=== PATIENT | male | born 1940 | race Caucasian/White ===

== ENCOUNTER 2016-07-30 09:58 | Inpatient (IN) | payer MEDICARE ==
[~2016-07-30 09:58] MED LIST: FENOFIBRATE160 MG PO; GLIPIZIDE5 MG PO; HCTZ25 MG PO; NORVASC 10MG TA10 MG PO; PLAVIX75 MG PO; PRAVACHOL80 MG PO; PRINIVIL20 MG PO; PROTONIX 40MG T40 MG PO
[2016-07-30 11:38] LABS: BASOPHIL 0.3 % (0-2); BILIRUBIN NEGATIVE (NEGATIVE); BLOOD NEGATIVE Ery/uL (NEGATIVE); CLARITY CLEAR (CLEAR); COLOR YELLOW (YELLOW); EOSINOPHIL 1.5 % (0-7); GLUCOSE (U) 2+ mg/dL (NORMAL); HCT 41.3 % (42.0-52.0); HGB 14.4 g/dl (13.2-18.0); KETONE (U) NEGATIVE (NEGATIVE); LEUKOCYTES NEGATIVE Leu/uL (NEGATIVE); LYMPHOCYTE 15.7 % (15-48); MCHC 34.9 g/dL (32.0-36.0); MCV 83.1 fL (78.0-100.0); MONOCYTE 9.8 % (0-12); MPV 10.6 fL (6.0-9.5); NEUTROPHIL 72.7 % (41-80); NITRITE NEGATIVE (NEGATIVE); PLT 247 K/uL (150-400); PROTEIN 1+ mg/dL (NEGATIVE); RBC 4.97 M/uL (4.70-6.00); RDW 12.1 % (11.5-14.0); UROBILINOGEN 0.2 mg/dL (0.2-1.0); WBC 7.8 K/uL (4.0-10.5)
[2016-07-30 11:41] LABS: SQUAMOUS EPITHELIAL CELLS RARE; URINARY RBC RARE; URINARY WBC RARE
[2016-07-30 11:51] LABS: INR 1.01 (0.9-1.2); PROTHROMBIN TIME 12.9 SECONDS (11.7-14.0); PTT 26.1 SECONDS (23.2-31.4)
[2016-07-30 12:00] LABS: ALBUMIN 4.7 g/dL (3.4-4.8); BILIRUBIN - TOTAL 0.4 mg/dL (0.1-1.0); CREATININE 2.3 mg/dL (0.7-1.2); GLOBULIN (CALCULATION) 2.5 g/dL (2.2-4.2); TOTAL PROTEIN 7.2 g/dL (6.4-8.3)
[2016-07-30 12:03] LABS: CKMB 3.59 ng/mL (0.97-4.94); TROPONIN T 0.034 ng/mL
[2016-07-31 04:53] LABS: HCT 38.5 % (42.0-52.0); HGB 13.2 g/dl (13.2-18.0); MCH 28.9 pg (25.0-31.0); MCHC 34.3 g/dL (32.0-36.0); MCV 84.2 fL (78.0-100.0); MPV 10.3 fL (6.0-9.5); RBC 4.57 M/uL (4.70-6.00); RDW 12.1 % (11.5-14.0); WBC 6.4 K/uL (4.0-10.5)
[2016-07-31 05:10] LABS: CREATININE 1.9 mg/dL (0.7-1.2); POTASSIUM 3.7 mmol/L (3.5-5.1)
[2016-08-01 08:06] LABS: HCT 37.1 % (42.0-52.0); HGB 12.4 g/dl (13.2-18.0); MCH 28.6 pg (25.0-31.0); MCHC 33.4 g/dL (32.0-36.0); MCV 85.5 fL (78.0-100.0); MPV 9.8 fL (6.0-9.5); RBC 4.34 M/uL (4.70-6.00); RDW 12.2 % (11.5-14.0); WBC 5.8 K/uL (4.0-10.5)
[2016-08-01 08:26] LABS: CREATININE 1.3 mg/dL (0.7-1.2)
[2016-08-02 06:40] LABS: HCT 36.3 % (42.0-52.0); HGB 12.3 g/dl (13.2-18.0); MCHC 33.9 g/dL (32.0-36.0); MCV 85.6 fL (78.0-100.0); MPV 10.1 fL (6.0-9.5); RBC 4.24 M/uL (4.70-6.00); RDW 12.4 % (11.5-14.0); WBC 5.8 K/uL (4.0-10.5)
[2016-08-02 07:02] LABS: CREATININE 1.2 mg/dL (0.7-1.2); POTASSIUM 4.5 mmol/L (3.5-5.1)
== END 2016-08-02 19:30 | disposition home or self-care (01) | DRG 638 ==
LOC: FER 09:58 → FMS 13:40
PROVIDERS: Emergency Medicine; ADMIT Internal Medicine
DX: E11.65 Type 2 diabetes mellitus with hyperglycemia (principal); N17.9 Acute kidney failure, unspecified; F03.90 Unspecified dementia, unspecified severity, without behavioral disturbance, psychotic disturbance, mood disturbance, and anxiety; J44.9 Chronic obstructive pulmonary disease, unspecified; T50.2X5A Adverse effect of carbonic-anhydrase inhibitors, benzothiadiazides and other diuretics, initial encounter; T36.95XA Adverse effect of unspecified systemic antibiotic, initial encounter; I10 Essential (primary) hypertension; I25.10 Atherosclerotic heart disease of native coronary artery without angina pectoris; E78.5 Hyperlipidemia, unspecified; I73.9 Peripheral vascular disease, unspecified; F17.210 Nicotine dependence, cigarettes, uncomplicated; G89.29 Other chronic pain; E87.6 Hypokalemia; Z66 Do not resuscitate; Z95.1 Presence of aortocoronary bypass graft; K21.9 Gastro-esophageal reflux disease without esophagitis; Y92.009 Unspecified place in unspecified non-institutional (private) residence as the place of occurrence of the external cause; Z79.899 Other long term (current) drug therapy
CPT/HCPCS: 36415; 36600; 71010; 80048; 80053; 81001; 82550; 82553; 82803; 82962; 83880; 84484; 85025; 85610; 85730; 93005; 97110; 97116; 97162; 97530-GP; J1644; J1815

== ENCOUNTER 2016-08-27 09:40 | Emergency (ER) | payer MEDICARE ==
[2016-08-27 09:49] LABS: BASOPHIL 0.4 % (0-2); EOSINOPHIL 2.6 % (0-7); HCT 39.1 % (42.0-52.0); HGB 13.1 g/dl (13.2-18.0); LYMPHOCYTE 22.5 % (15-48); MCHC 33.5 g/dL (32.0-36.0); MCV 83.5 fL (78.0-100.0); MONOCYTE 9.7 % (0-12); MPV 9.4 fL (6.0-9.5); NEUTROPHIL 64.8 % (41-80); PLT 332 K/uL (150-400); RBC 4.68 M/uL (4.70-6.00); RDW 12.5 % (11.5-14.0); WBC 10.3 K/uL (4.0-10.5)
[2016-08-27 09:58] LABS: INR 1.01 (0.9-1.2); PROTHROMBIN TIME 12.9 SECONDS (11.7-14.0)
[2016-08-27 10:06] LABS: TROPONIN T 0.032 ng/mL
[2016-08-27 10:15] LABS: BILIRUBIN NEGATIVE (NEGATIVE); BLOOD NEGATIVE Ery/uL (NEGATIVE); CLARITY CLEAR (CLEAR); COLOR YELLOW (YELLOW); GLUCOSE (U) NORMAL (NORMAL); KETONE (U) NEGATIVE (NEGATIVE); LEUKOCYTES NEGATIVE Leu/uL (NEGATIVE); NITRITE NEGATIVE (NEGATIVE); PROTEIN 2+ mg/dL (NEGATIVE); UROBILINOGEN 0.2 mg/dL (0.2-1.0)
[2016-08-27 10:19] LABS: SQUAMOUS EPITHELIAL CELLS RARE
[2016-08-27 11:04] LABS: ALBUMIN 3.9 g/dL (3.4-4.8); BILIRUBIN - TOTAL 0.2 mg/dL (0.1-1.0); CREATININE 1.7 mg/dL (0.7-1.2); GLOBULIN (CALCULATION) 2.7 g/dL (2.2-4.2); POTASSIUM 3.6 mmol/L (3.5-5.1); TOTAL PROTEIN 6.6 g/dL (6.4-8.3)
== END 2016-08-27 13:47 | disposition home or self-care (01) ==
LOC: FER 09:40
PROVIDERS: Emergency Medicine
DX: E86.0 Dehydration (principal); N28.9 Disorder of kidney and ureter, unspecified; E11.9 Type 2 diabetes mellitus without complications; F17.210 Nicotine dependence, cigarettes, uncomplicated; Z95.1 Presence of aortocoronary bypass graft; Z79.899 Other long term (current) drug therapy; Z79.84 Long term (current) use of oral hypoglycemic drugs
CPT/HCPCS: 36415; 71020; 80053; 81001; 82140; 83605; 83880; 84484; 85025; 85610; 87804; 87899; 93005

== ENCOUNTER 2020-10-05 15:32 | Inpatient (IN) | payer OTHER ==
[2020-10-05 16:40] LABS: BASOPHIL 0.4 % (0-2); EOSINOPHIL 0.1 % (0-7); HCT 39.6 % (42.0-52.0); HGB 13.7 g/dl (13.2-18.0); MCHC 34.6 g/dL (32.0-36.0); MCV 86.7 fL (78.0-100.0); MONOCYTE 6.7 % (0-12); MPV 10.3 fL (6.0-9.5); NRBC 0; PLT 279 K/uL (150-400); RBC 4.57 M/uL (4.70-6.00); RDW 12.5 % (11.5-14.0); WBC 13.5 K/uL (4.0-10.5)
[2020-10-05 17:06] LABS: ALBUMIN 4.1 g/dL (3.4-5.0); BILIRUBIN - TOTAL 0.4 mg/dL (0.2-1.0); CREATININE 2.5 mg/dL (0.67-1.17); POTASSIUM 5.2 mmol/L (3.5-5.1); TOTAL PROTEIN 8.1 g/dL (6.4-8.2)
[2020-10-05 18:12] LABS: CORONAVIRUS 2019 SARS-COV-2 NEGATIVE (NEGATIVE); INFLUENZA A NAA NEGATIVE (NEGATIVE)
[2020-10-05 18:35] LABS: BILIRUBIN NEGATIVE (NEGATIVE); BLOOD NEGATIVE Ery/uL (NEGATIVE); CLARITY CLEAR (CLEAR); COLOR YELLOW (YELLOW); GLUCOSE (U) NORMAL (NORMAL); LEUKOCYTES NEGATIVE Leu/uL (NEGATIVE); NITRITE NEGATIVE (NEGATIVE); PROTEIN 2+ mg/dL (NEGATIVE); UROBILINOGEN 0.2 mg/dL (0.2-1.0); pH 5.5 (5.0-9.0)
[2020-10-05 18:47] LABS: SQUAMOUS EPITHELIAL CELLS RARE; URINARY RBC RARE; URINARY WBC RARE
[2020-10-05 19:17] LABS: CREATININE 2.16 mg/dL (0.67-1.17); POTASSIUM 5.5 mmol/L (3.5-5.1)
[2020-10-05 22:58] LABS: CREATININE 2.16 mg/dL (0.67-1.17); POTASSIUM 5.2 mmol/L (3.5-5.1)
[2020-10-06] MEDS ORDERED: ATENOLOL25 MG PO (00:38)
[2020-10-06] MEDS ORDERED: BUMEX1 MG PO (00:39)
[2020-10-06] MEDS ORDERED: BUMETANIDE1 MG PO (00:40)
[2020-10-06] MEDS ORDERED: ALLERGY RELIEF10 MG PO (00:41)
[2020-10-06] MEDS ORDERED: PLAVIX75 MG PO (00:42)
[2020-10-06] MEDS ORDERED: ARICEPT 5MG TABL5 MG PO (00:42)
[2020-10-06] MEDS ORDERED: HYDRALAZINE25 MG PO (00:43)
[2020-10-06] MEDS ORDERED: FEROSUL325 MG PO (00:43)
[2020-10-06] MEDS ORDERED: ISOSORBIDE MONO30 MG PO (00:45)
[2020-10-06] MEDS ORDERED: VITAMIN D350 MC3 PO (00:47)
[2020-10-06] MEDS ORDERED: MIRALAX17 GM PO (00:48)
[2020-10-06] MEDS ORDERED: PROTONIX 40MG T40 MG PO (00:49)
[2020-10-06] MEDS ORDERED: NOVOLOG VI100 UNIT/1 SC (00:49)
[2020-10-06] MEDS ORDERED: PRAVACHOL20 MG PO (00:50)
[2020-10-06] MEDS ORDERED: ALDACTONE50 MG PO (00:50)
[2020-10-06] MEDS ORDERED: ACETAMINOPHEN500 M1 PO (00:51)
[2020-10-06] MEDS ORDERED: AMITIZA8 MCG PO (00:52)
[2020-10-06 06:16] LABS: URINE TOTAL PROTEIN-RANDOM 35.1 mg/dL (<11.9)
[2020-10-06 06:34] LABS: BASOPHIL 0.6 % (0-2); EOSINOPHIL 0.5 % (0-7); HCT 37.3 % (42.0-52.0); HGB 12.5 g/dl (13.2-18.0); LYMPHOCYTE 13.2 % (15-48); MCH 29.7 pg (25.0-31.0); MCHC 33.5 g/dL (32.0-36.0); MCV 88.6 fL (78.0-100.0); MONOCYTE 8.8 % (0-12); MPV 10.2 fL (6.0-9.5); NEUTROPHIL 76.2 % (41-80); NRBC 0; PLT 228 K/uL (150-400); RBC 4.21 M/uL (4.70-6.00); RDW 12.4 % (11.5-14.0); WBC 8.7 K/uL (4.0-10.5)
[2020-10-06 06:52] LABS: ALBUMIN 3.5 g/dL (3.4-5.0); BILIRUBIN - TOTAL 0.4 mg/dL (0.2-1.0); CREATININE 1.88 mg/dL (0.67-1.17); GLOBULIN (CALCULATION) 3.4 g/dL; POTASSIUM 5.1 mmol/L (3.5-5.1); TOTAL PROTEIN 6.9 g/dL (6.4-8.2)
[2020-10-07 09:12] LABS: BASOPHIL 0.6 % (0-2); EOSINOPHIL 1.6 % (0-7); HCT 34.2 % (42.0-52.0); HGB 11.4 g/dl (13.2-18.0); LYMPHOCYTE 12.7 % (15-48); MCHC 33.3 g/dL (32.0-36.0); MONOCYTE 8.3 % (0-12); NRBC 0; PLT 195 K/uL (150-400); RDW 12.7 % (11.5-14.0); WBC 8.1 K/uL (4.0-10.5)
[2020-10-07 09:43] LABS: CREATININE 1.24 mg/dL (0.67-1.17); POTASSIUM 4.6 mmol/L (3.5-5.1)
[2020-10-07 15:02] LABS: HCT 35.4 % (42.0-52.0); HGB 11.7 g/dl (13.2-18.0); MCH 29.7 pg (25.0-31.0); MCHC 33.1 g/dL (32.0-36.0); MCV 89.8 fL (78.0-100.0); MPV 9.9 fL (6.0-9.5); RBC 3.94 M/uL (4.70-6.00); RDW 12.8 % (11.5-14.0); WBC 8.9 K/uL (4.0-10.5)
[2020-10-07 15:12] LABS: INR 1.06 (0.9-1.2); PROTHROMBIN TIME 13.1 SECONDS (11.4-13.6); PTT 30.5 SECONDS (22.2-34.7)
[2020-10-08 07:11] LABS: BASOPHIL 0.6 % (0-2); EOSINOPHIL 2.6 % (0-7); HCT 35.2 % (42.0-52.0); HGB 11.7 g/dl (13.2-18.0); LYMPHOCYTE 13.2 % (15-48); MCH 29.8 pg (25.0-31.0); MCHC 33.2 g/dL (32.0-36.0); MCV 89.6 fL (78.0-100.0); MONOCYTE 8.6 % (0-12); MPV 10.1 fL (6.0-9.5); NEUTROPHIL 73.1 % (41-80); NRBC 0; PLT 203 K/uL (150-400); RBC 3.93 M/uL (4.70-6.00); RDW 12.8 % (11.5-14.0); WBC 8.8 K/uL (4.0-10.5)
[2020-10-08 07:15] LABS: BUN/CREAT RATIO (CALC) 34.4 RATIO; CREATININE 1.31 mg/dL (0.67-1.17); MAGNESIUM 1.8 mg/dL (1.8-2.4); POTASSIUM 5.1 mmol/L (3.5-5.1)
[2020-10-08 14:07] LABS: ORGANISM ID Not indicated. (.); SPECIMEN SOURCE Urine (.); STREPTOCOCCUS PNEUMONIAE AG Negative (Negative)
--- NOTE | 2020-10-08 14:54 | NUR ---
10/08/20 Mr. Francis's son, guardian Pedro Pablo Francis ) reports that Mr. Francis lives at home with his spouse. family members are in and out of the house throughout the day. One daughter is a RN and also visits the home. - Mr. Francis has a rw and cane. Pedro Pablo Francis does not wish to have services. He said his sister can provide nursing services and Therapy would not be benficial. - A report was given to Dr. Harper.
[2020-10-08 16:08] LABS: ALBUMIN 3.2 g/dL (2.9-4.4); ALPHA-1-GLOBULIN 0.2 g/dL (0.0-0.4); ALPHA-2-GLOBULIN 1.1 g/dL (0.4-1.0); GAMMA GLOBULIN 0.9 g/dL (0.4-1.8); GLOBULIN, TOTAL 3.2 g/dL (2.2-3.9); M-SPIKE Not Observed g/dL (Not Observed); PROTEIN, TOTAL, SERUM 6.4 g/dL (6.0-8.5)
[2020-10-09 06:37] LABS: HCT 38.4 % (42.0-52.0); HGB 12.6 g/dl (13.2-18.0); MCH 29.6 pg (25.0-31.0); MCHC 32.8 g/dL (32.0-36.0); MCV 90.1 fL (78.0-100.0); MPV 10.1 fL (6.0-9.5); RBC 4.26 M/uL (4.70-6.00); WBC 13.4 K/uL (4.0-10.5)
[2020-10-09 07:00] LABS: BUN/CREAT RATIO (CALC) 30.2 RATIO; CREATININE 1.16 mg/dL (0.67-1.17); POTASSIUM 5.2 mmol/L (3.5-5.1)
[2020-10-09 10:07] LABS: URINE CREATININE 65.63 mg/dL (29.00-226.00); URINE TOTAL PROTEIN-RANDOM 135.4 mg/dL (<11.9)
--- NOTE | 2020-10-09 10:42 | NUR ---
10/09/20 Mr. Francis is being discharged today. Pedro Pablo Francis, guardian, was contacted by telephone. The physician's and therapist's recommendations for HH for nursing and therapy were reiterated. Mr. Pedro Pablo Francis declined HH services. - A report was given to Dr. Harper.
--- NOTE | 2020-10-09 11:04 | NUR ---
DISCHARGE ORDERS RECEIVED. IV DC'D. ORDERS FOR HOME HEALTH. PATIENTS FAMILY DECLINED. PT SON TO [employer] HEL[employer]. DISCHARGE PAPERS GIVEN TO PT. ALL QUESTIONS ANSWERED.
[2020-10-10 16:11] LABS: A/G RATIO 1.1 (0.7-1.7); ALBUMIN 3.1 g/dL (2.9-4.4); ALPHA-1-GLOBULIN 0.3 g/dL (0.0-0.4); ALPHA-2-GLOBULIN 1.1 g/dL (0.4-1.0); BETA GLOBULIN 0.9 g/dL (0.7-1.3); GAMMA GLOBULIN 0.8 g/dL (0.4-1.8); GLOBULIN, TOTAL 3.1 g/dL (2.2-3.9); IMMUNOFIXATION RESULT, SERUM Comment: (.); IMMUNOGLOBULIN A, QN, SERUM 163 mg/dL (61-437); IMMUNOGLOBULIN G, QN, SERUM 745 mg/dL (603-1613); IMMUNOGLOBULIN M, QN, SERUM 46 mg/dL (15-143); M-SPIKE Not Observed g/dL (Not Observed); PROTEIN, TOTAL, SERUM 6.2 g/dL (6.0-8.5)
== END 2020-10-09 13:30 | disposition home health service (06) | DRG 684 ==
LOC: FER 15:32 → FTCU 19:52
PROVIDERS: Emergency Medicine; Hospitalist; Internal Medicine Nephrology; Nurse Practitioner; ADMIT Internal Medicine
DX: N17.9 Acute kidney failure, unspecified (principal); I12.9 Hypertensive chronic kidney disease with stage 1 through stage 4 chronic kidney disease, or unspecified chronic kidney disease; N18.30 Chronic kidney disease, stage 3 unspecified; R80.9 Proteinuria, unspecified; F03.90 Unspecified dementia, unspecified severity, without behavioral disturbance, psychotic disturbance, mood disturbance, and anxiety; E86.0 Dehydration; R11.2 Nausea with vomiting, unspecified; E87.5 Hyperkalemia; E86.1 Hypovolemia; Z79.899 Other long term (current) drug therapy; K59.00 Constipation, unspecified; E11.22 Type 2 diabetes mellitus with diabetic chronic kidney disease; I73.9 Peripheral vascular disease, unspecified; I25.10 Atherosclerotic heart disease of native coronary artery without angina pectoris; Z95.1 Presence of aortocoronary bypass graft; E78.5 Hyperlipidemia, unspecified; K21.9 Gastro-esophageal reflux disease without esophagitis; G89.29 Other chronic pain; M54.9 Dorsalgia, unspecified; Z20.822 Contact with and (suspected) exposure to COVID-19; L22 Diaper dermatitis; R26.81 Unsteadiness on feet
CPT/HCPCS: 36415; 71045; 76770; 80048; 80053; 81001; 82043; 82570; 82784; 82962; 83605; 83735; 84155; 84156; 84165; 85025; 85610; 85730; 86335; 94760; 97162; 97166; 97530-GP; 97535; C9113; J1650; J2405; J7030; U0002

== ENCOUNTER 2020-11-04 02:04 | Inpatient (IN) | payer OTHER ==
[~2020-11-04] VITALS: Ht 175.3 cm; Wt 81.2 kg
[~2020-11-04 02:04] MED LIST changes: +ACETAMINOPHEN500 M1 PO; +ALDACTONE50 MG PO; +ALLERGY RELIEF10 MG PO; +AMITIZA8 MCG PO; +ARICEPT 5MG TABL5 MG PO; +ATENOLOL25 MG PO; +BUMETANIDE1 MG PO; +BUMEX1 MG PO; +FEROSUL325 MG PO; +HYDRALAZINE25 MG PO; +ISOSORBIDE MONO30 MG PO; +MIRALAX17 GM PO; +NOVOLOG VI100 UNIT/1 SC; +PRAVACHOL20 MG PO; +VITAMIN D350 MC3 PO
[2020-11-04 05:52] LABS: ALBUMIN 3.1 g/dL (3.4-5.0); BILIRUBIN - TOTAL 0.5 mg/dL (0.2-1.0); BUN/CREAT RATIO (CALC) 14.5 RATIO; CREATININE 1.1 mg/dL (0.67-1.17); GLOBULIN (CALCULATION) 3.6 g/dL; POTASSIUM 4.2 mmol/L (3.5-5.1); TOTAL PROTEIN 6.7 g/dL (6.4-8.2)
[2020-11-04 06:04] LABS: BASOPHIL 0.5 % (0-2); EOSINOPHIL 0.9 % (0-7); HCT 36.2 % (42.0-52.0); HGB 11.6 g/dl (13.2-18.0); LYMPHOCYTE 9.7 % (15-48); MCH 29.4 pg (25.0-31.0); MCV 91.6 fL (78.0-100.0); MONOCYTE 9.7 % (0-12); MPV 10.7 fL (6.0-9.5); NEUTROPHIL 78.5 % (41-80); NRBC 0; PLT 354 K/uL (150-400); RBC 3.95 M/uL (4.70-6.00); RDW 14.6 % (11.5-14.0)
[2020-11-04 07:46] LABS: LACTIC ACID 1.2 mmol/L (0.4-1.9)
[2020-11-04 11:16] LABS: BILIRUBIN NEGATIVE (NEGATIVE); BLOOD NEGATIVE Ery/uL (NEGATIVE); CLARITY CLEAR (CLEAR); COLOR YELLOW (YELLOW); GLUCOSE (U) NORMAL (NORMAL); LEUKOCYTES NEGATIVE Leu/uL (NEGATIVE); NITRITE NEGATIVE (NEGATIVE); PROTEIN 3+ mg/dL (NEGATIVE); SPECIFIC GRAVITY 1.025 (1.001-1.030); UROBILINOGEN 0.2 mg/dL (0.2-1.0)
[2020-11-04 11:29] LABS: BACTERIA 1+; URINARY RBC RARE; URINARY WBC RARE
[2020-11-04 11:58] LABS: MAGNESIUM 1.7 mg/dL (1.8-2.4)
[2020-11-05 06:07] LABS: BASOPHIL 0.4 % (0-2); EOSINOPHIL 4.8 % (0-7); HCT 31.1 % (42.0-52.0); HGB 10.4 g/dl (13.2-18.0); LYMPHOCYTE 18.5 % (15-48); MCH 29.7 pg (25.0-31.0); MCHC 33.4 g/dL (32.0-36.0); MCV 88.9 fL (78.0-100.0); MONOCYTE 11.4 % (0-12); MPV 9.9 fL (6.0-9.5); NEUTROPHIL 64.4 % (41-80); NRBC 0; PLT 251 K/uL (150-400); RDW 14.4 % (11.5-14.0); WBC 7.3 K/uL (4.0-10.5)
[2020-11-05 06:22] LABS: BUN/CREAT RATIO (CALC) 16.1 RATIO; CREATININE 1.24 mg/dL (0.67-1.17); PHOSPHORUS 3.4 mg/dL (2.6-4.7); POTASSIUM 3.7 mmol/L (3.5-5.1)
--- NOTE | 2020-11-05 12:06 | NUR ---
SPOKE WITH SON, TORREY MICHAEL WHO IS PT. GUARDIAN [phone]. HE IS DECLINING THE HH AND PT. HE STATED THAT HE DOES NOT WISH TO HAVE HH HIS SISTER IS A NURSE AND WILL BE CHECKING ON THEIR FATHER. ADVISED HIM THAT THE DOCTOR IS RECOMMENDING HH AND PT, BUT HE CONTINUED TO DECLINE THE SERVICES.
[2020-11-06 09:35] LABS: HCT 33.1 % (42.0-52.0); HGB 10.3 g/dl (13.2-18.0); MCH 29.3 pg (25.0-31.0); MCHC 31.1 g/dL (32.0-36.0); MPV 9.7 fL (6.0-9.5); RBC 3.52 M/uL (4.70-6.00); RDW 14.3 % (11.5-14.0); WBC 7.7 K/uL (4.0-10.5)
[2020-11-06 10:02] LABS: CREATININE 1.19 mg/dL (0.67-1.17); POTASSIUM 4.4 mmol/L (3.5-5.1)
[2020-11-06] MEDS ORDERED: K-DUR20 MEQ PO (10:38)
[2020-11-06] MEDS ORDERED: BUMEX1 MG PO (10:38)
[2020-11-06] MEDS ORDERED: ZITHROMAX250 MG PO (11:00)
[2020-11-06] MEDS ORDERED: CEFDINIR300 MG PO (11:00)
== END 2020-11-06 13:40 | disposition home or self-care (01) | DRG 280 ==
LOC: FER 02:04 → FMS 08:18
PROVIDERS: Emergency Medicine; Internal Medicine; ADMIT Allergy & Immunology Allergy
DX: I21.A1 Myocardial infarction type 2 (principal); J18.9 Pneumonia, unspecified organism; E78.5 Hyperlipidemia, unspecified; I12.9 Hypertensive chronic kidney disease with stage 1 through stage 4 chronic kidney disease, or unspecified chronic kidney disease; N18.30 Chronic kidney disease, stage 3 unspecified; F17.210 Nicotine dependence, cigarettes, uncomplicated; E11.22 Type 2 diabetes mellitus with diabetic chronic kidney disease; Z20.822 Contact with and (suspected) exposure to COVID-19; R60.0 Localized edema; E87.70 Fluid overload, unspecified; G89.29 Other chronic pain; E11.51 Type 2 diabetes mellitus with diabetic peripheral angiopathy without gangrene; Z95.1 Presence of aortocoronary bypass graft; Z95.0 Presence of cardiac pacemaker; Z95.5 Presence of coronary angioplasty implant and graft; Z98.890 Other specified postprocedural states; Z79.02 Long term (current) use of antithrombotics/antiplatelets; Z79.899 Other long term (current) drug therapy; Z79.4 Long term (current) use of insulin
CPT/HCPCS: 36415; 71045; 80048; 80053; 80061; 81001; 82962; 83605; 83735; 83880; 84100; 84484; 85025; 87040; 93005; J0696; J1650; J2405; J2543; J3475; U0002

== ENCOUNTER 2021-07-26 20:16 | Inpatient (IN) | payer OTHER ==
[~2021-07-26] VITALS: Ht 175.3 cm; Wt 81.7 kg
[~2021-07-26 20:16] MED LIST changes: +CEFDINIR300 MG PO; +K-DUR20 MEQ PO; +ZITHROMAX250 MG PO
[2021-07-26 21:13] LABS: BASOPHIL 0.5 % (0-2); EOSINOPHIL 3.7 % (0-7); HCT 35.1 % (42.0-52.0); HGB 11.6 g/dl (13.2-18.0); LYMPHOCYTE 19.9 % (15-48); MCH 29.4 pg (25.0-31.0); MCV 88.9 fL (78.0-100.0); MPV 9.8 fL (6.0-9.5); NEUTROPHIL 63.9 % (41-80); NRBC 0; PLT 166 K/uL (150-400); RBC 3.95 M/uL (4.70-6.00); RDW 14.3 % (11.5-14.0); WBC 5.9 K/uL (4.0-10.5)
[2021-07-26 21:39] LABS: ALBUMIN 3.3 g/dL (3.4-5.0); BILIRUBIN - TOTAL 0.1 mg/dL (0.2-1.0); BUN/CREAT RATIO (CALC) 16.8 RATIO; CREATININE 2.5 mg/dL (0.67-1.17); FT4 (FREE T4) 0.7 ng/dL (0.76-1.46); GLOBULIN (CALCULATION) 3.6 g/dL; MAGNESIUM 1.2 mg/dL (1.8-2.4); PHOSPHORUS 4.5 mg/dL (2.6-4.7); TOTAL PROTEIN 6.9 g/dL (6.4-8.2)
[2021-07-26 21:56] LABS: POTASSIUM 6.7 mmol/L (3.5-5.1)
[2021-07-26 22:54] LABS: LACTIC ACID 1.4 mmol/L (0.4-1.9)
[2021-07-27] MEDS ORDERED: SPIRONOLACTONE25 M1 PO (02:13)
[2021-07-27 07:16] LABS: BASOPHIL 0.6 % (0-2); EOSINOPHIL 3.1 % (0-7); HCT 38.8 % (42.0-52.0); HGB 12.3 g/dl (13.2-18.0); LYMPHOCYTE 17.7 % (15-48); MCH 28.7 pg (25.0-31.0); MCHC 31.7 g/dL (32.0-36.0); MCV 90.7 fL (78.0-100.0); MONOCYTE 10.7 % (0-12); MPV 9.9 fL (6.0-9.5); NEUTROPHIL 67.3 % (41-80); NRBC 0; PLT 180 K/uL (150-400); RBC 4.28 M/uL (4.70-6.00); RDW 14.5 % (11.5-14.0); WBC 7.1 K/uL (4.0-10.5)
[2021-07-27 07:37] LABS: ALBUMIN 3.4 g/dL (3.4-5.0); BILIRUBIN - TOTAL 0.2 mg/dL (0.2-1.0); BUN/CREAT RATIO (CALC) 18.6 RATIO; CREATININE 2.15 mg/dL (0.67-1.17); GLOBULIN (CALCULATION) 3.9 g/dL; MAGNESIUM 1.5 mg/dL (1.8-2.4); PHOSPHORUS 3.8 mg/dL (2.6-4.7); POTASSIUM 6.3 mmol/L (3.5-5.1); TOTAL PROTEIN 7.3 g/dL (6.4-8.2)
--- NOTE | 2021-07-27 11:40 | NUR ---
1115 PT WALKED TO [facility] WITH ASSISTANCE AND URINATED THEN STARTED HAVING EXTREME PAIN TO THE RLQ THAT RADIATED TO THE R BACK NOTIFIED DR ALICIA, HE ORDERED XRAY, KUB, DILAUDID 0.5MG ONE TIME NOW AND THEN DILAUDID 0.5 MG Q4HRS PRN AND 1MG FOR EXTREME PAIN. ALSO ORDERED MEDICATIONS FOR BOWELS
[2021-07-27 13:35] LABS: BUN/CREAT RATIO (CALC) 17.4 RATIO; CREATININE 2.07 mg/dL (0.67-1.17); POTASSIUM 6.2 mmol/L (3.5-5.1)
[2021-07-27 20:17] LABS: CREATININE 2.1 mg/dL (0.67-1.17); POTASSIUM 5.1 mmol/L (3.5-5.1)
--- NOTE | 2021-07-28 05:36 | NUR ---
WALKED PT TO THE TOILET, HE IS STILL HAVING EXTREME RLQ PAIN THAT RADIATES TO THIS BACK. NOTIFIED BRIANA THAT THE PAIN WAS STILL PRESENT.
--- NOTE | 2021-07-28 18:32 | NUR ---
PT C/O RIGHT LOWER BACK/HIP PAIN, DILAUDID 2MG TAB WAS GIVEN FOR PT PAIN, PAIN WAS RATED A 10/10. AFTER REASSESSMENT, PAIN WAS STILL NOT RELIEVED AND A 10/10. MD WAS NOTIFED AND VERBAL ORDER TO GIVE ANOTHER 2MG TAB DILAUDID TO EQUAL ORDER OF 4MG TAB DILAUDID. EMAR WAS ATTEMPTED TO BE CORRECTED.
[2021-07-29 06:13] LABS: BUN/CREAT RATIO (CALC) 18.4 RATIO; CREATININE 1.79 mg/dL (0.67-1.17); MAGNESIUM 1.1 mg/dL (1.8-2.4); POTASSIUM 4.3 mmol/L (3.5-5.1)
[2021-07-29] MEDS ORDERED: BUMEX1 MG PO (14:05)
[2021-07-29] MEDS ORDERED: TOPROL XL 25MG25 MG PO (14:20)
[2021-07-29] MEDS ORDERED: DILAUDID2 MG PO ×2 (14:22→14:39)
--- NOTE | 2021-07-29 15:37 | NUR ---
07/29/21 Mr. Francis lives at home with his spouse. He has a rw, edna, 3in1 and s. chair. He has 3 children. Guardianship has changed from Pedro Pablo Francis, son, to his daughter, Janet Venegas, . Ms. Venegas is a nurse. - Pt recommended HH. Awaiting response from guardian re: HH selection.
== END 2021-07-29 15:53 | disposition home health service (06) | DRG 683 ==
LOC: FER 20:16 → FICU 07-27 00:35 → FTCU 07-28 07:33
PROVIDERS: Allergy & Immunology Allergy; Emergency Medicine Emergency Medical Services; Internal Medicine Nephrology; Nurse Practitioner; ADMIT Internal Medicine
PROC: 05HY33Z Insertion of Infusion Device into Upper Vein, Percutaneous Approach (ICD-10-PCS; principal; 2021-07-27)
DX: N17.9 Acute kidney failure, unspecified (principal); I13.0 Hypertensive heart and chronic kidney disease with heart failure and stage 1 through stage 4 chronic kidney disease, or unspecified chronic kidney disease; E87.5 Hyperkalemia; Z20.822 Contact with and (suspected) exposure to COVID-19; E11.22 Type 2 diabetes mellitus with diabetic chronic kidney disease; N18.32 Chronic kidney disease, stage 3b; F03.90 Unspecified dementia, unspecified severity, without behavioral disturbance, psychotic disturbance, mood disturbance, and anxiety; I45.10 Unspecified right bundle-branch block; E83.42 Hypomagnesemia; Z66 Do not resuscitate; I25.10 Atherosclerotic heart disease of native coronary artery without angina pectoris; K40.90 Unilateral inguinal hernia, without obstruction or gangrene, not specified as recurrent; M54.50 Low back pain, unspecified; E78.5 Hyperlipidemia, unspecified; G89.29 Other chronic pain; R10.31 Right lower quadrant pain; Z95.1 Presence of aortocoronary bypass graft; Z95.0 Presence of cardiac pacemaker; Z95.828 Presence of other vascular implants and grafts; Z98.890 Other specified postprocedural states
CPT/HCPCS: 36415; 71045; 74018; 80048; 80053; 82962; 83036; 83605; 83735; 84100; 84132; 84145; 84439; 84443; 84484; 85025; 93005; 94010; 94640; 94664; 94762; 97162; 97166; 97530-GP; 97535; C1751; J0610; J1170; J1644; J1815; J1940; J2405; J3475; J7030; U0002

== ENCOUNTER 2021-11-28 16:01 | Emergency (ER) | payer OTHER ==
[~2021-11-28 16:01] MED LIST changes: +DILAUDID2 MG PO; +SPIRONOLACTONE25 M1 PO; +TOPROL XL 25MG25 MG PO
[2021-11-28 18:20] LABS: BASOPHIL 0.6 % (0-2); EOSINOPHIL 0.2 % (0-7); HCT 36.3 % (42.0-52.0); HGB 11.6 g/dl (13.2-18.0); LYMPHOCYTE 7.5 % (15-48); MCH 28.8 pg (25.0-31.0); MCV 90.1 fL (78.0-100.0); MONOCYTE 6.8 % (0-12); MPV 9.9 fL (6.0-9.5); NEUTROPHIL 84.2 % (41-80); NRBC 0; PLT 362 K/uL (150-400); RBC 4.03 M/uL (4.70-6.00); RDW 12.9 % (11.5-14.0); WBC 10.2 K/uL (4.0-10.5)
[2021-11-28 18:39] LABS: INR 1.05 (0.9-1.2); PROTHROMBIN TIME 13.1 SECONDS (11.8-13.4); PTT 32.3 SECONDS (24.4-34.7)
[2021-11-28 18:50] LABS: LACTIC ACID 1.7 mmol/L (0.4-1.9)
[2021-11-28 19:10] LABS: BILIRUBIN NEGATIVE (NEGATIVE); BLOOD TRACE-INTACT Ery/uL (NEGATIVE); CLARITY CLEAR (CLEAR); COLOR YELLOW (YELLOW); GLUCOSE (U) 1+ mg/dL (NORMAL); LEUKOCYTES NEGATIVE Leu/uL (NEGATIVE); NITRITE NEGATIVE (NEGATIVE); PROTEIN 3+ mg/dL (NEGATIVE); UROBILINOGEN 0.2 mg/dL (0.2-1.0); pH 6.5 (5.0-9.0)
[2021-11-28 19:12] LABS: AMPHETAMINES NEGATIVE (NEGATIVE); BARBITURATES NEGATIVE (NEGATIVE); ECSTASY (MDMA) NEGATIVE (NEGATIVE); MARIJUANA (THC) NEGATIVE (NEGATIVE); METHADONE NEGATIVE (NEGATIVE); OPIATES POSITIVE (NEGATIVE); OXYCODONE NEGATIVE (NEGATIVE)
[2021-11-28 19:26] LABS: URINARY RBC RARE
[2021-11-28 19:27] LABS: SQUAMOUS EPITHELIAL CELLS RARE
[2021-11-28 20:58] LABS: BILIRUBIN - TOTAL 0.2 mg/dL (0.2-1.0); BUN/CREAT RATIO (CALC) 16.2 RATIO; C-REACTIVE PROTEIN 1.5 mg/dL (<=0.90); CREATININE 1.98 mg/dL (0.67-1.17); GLOBULIN (CALCULATION) 4.4 g/dL; MAGNESIUM 1.7 mg/dL (1.8-2.4); POTASSIUM 5.9 mmol/L (3.5-5.1); TOTAL PROTEIN 7.4 g/dL (6.4-8.2); URIC ACID 6.1 mg/dL (3.5-7.2)
[2021-11-29 03:48] LABS: BUN/CREAT RATIO (CALC) 15.5 RATIO; CREATININE 1.93 mg/dL (0.67-1.17); POTASSIUM 5.3 mmol/L (3.5-5.1)
== END 2021-11-29 11:37 | disposition other institution (70) ==
LOC: FER 16:01
PROVIDERS: Emergency Medicine; Internal Medicine
DX: E10.51 Type 1 diabetes mellitus with diabetic peripheral angiopathy without gangrene (principal); L03.116 Cellulitis of left lower limb; I25.10 Atherosclerotic heart disease of native coronary artery without angina pectoris; F17.290 Nicotine dependence, other tobacco product, uncomplicated; Z20.822 Contact with and (suspected) exposure to COVID-19; Z28.310 Unvaccinated for COVID-19; Z95.1 Presence of aortocoronary bypass graft
CPT/HCPCS: 36415; 80048; 80053; 80305; 81001; 83605; 83735; 84145; 84443; 84484; 84550; 85025; 85610; 85730; 86140; 87040; 93005; J0610; J0696; J7030; U0002